=== PATIENT | female | born 1990 | race Caucasian/White ===

== ENCOUNTER 2016-09-10 11:52 | Inpatient (IN) | payer BC ==
[~2016-09-10] VITALS: Ht 167.6 cm; Wt 92.7 kg
[2016-11-19] VITALS (16 sets, daily range): BP systolic 83–135; BP diastolic 46–77; PULSE 60–88; TEMP 97–97.7
[2016-11-19 17:55] LABS: BASO % 0.2 % (0.0-2.0); EOS # 0.2 (0.0-0.7); EOS % 1.8 % (0-4.0); GRAN # 9.3 (1.4-6.5); GRAN % 74.7 % (42.2-75.2); HEMOGLOBIN 13.1 g/dl (12.5-16.0); LYMPH # 1.6 (1.2-3.4); LYMPH % 12.9 % (20.0-51.0); MEAN CELL VOLUME 92 fl (80.0-100.0); MEAN CORPUSCULAR HEMOGLOBIN 33 pg (27.0-31.0); MEAN CORPUSCULAR HGB CONC 36 g/dl (33.0-37.0); MEAN PLATELET VOLUME 12.1 fl (7.4-10.4); MONO # 1.2 (0.1-0.6); MONO % 9.9 % (1.7-9.3); PLATELET COUNT 181 K/mm3 (130-400); RED BLOOD COUNT 3.97 M/mm3 (4.10-5.30); REDCELL DISTRIBUTION WIDTH-CV 11.9 % (11.5-14.5); WHITE BLOOD COUNT 12.5 K/mm3 (4.8-10.8)
[2016-11-19 18:04] LABS: HEMATOCRIT 36.6 % (37.0-47.0)
[2016-11-20 04:00] VITALS: BP 124/58; PULSE 76; TEMP 98.3
[2016-11-20 10:31] VITALS: BP 119/68; PULSE 89; TEMP 98.1
[2016-11-20] MEDS ORDERED: PERCOCET 325 MG1 TA2 PO (14:36)
[2016-11-20] MEDS ORDERED: IBU800 M1 PO (14:36)
[2016-11-20 16:16] VITALS: BP 121/76; PULSE 59; TEMP 97.7
[2016-11-20 19:50] VITALS: BP 117/60; PULSE 62; TEMP 97.7
== END 2016-11-20 23:45 | disposition home or self-care (01) | DRG 775 ==
LOC: EDSTATUS 11-16 07:31 → LDRO 11-16 11:52 → LDR 11-19 07:36 → OB 11-19 17:16 → LDR 11-19 17:16 → OB 11-19 23:25
PROVIDERS: Student in an Organized Health Care Education/Training Program
PROC: 10E0XZZ Delivery of Products of Conception, External Approach (ICD-10-PCS; principal; 2016-11-19)
DX: O48.0 Post-term pregnancy (principal); O36.63X0 Maternal care for excessive fetal growth, third trimester, not applicable or unspecified; O76 Abnormality in fetal heart rate and rhythm complicating labor and delivery; O66.0 Obstructed labor due to shoulder dystocia; O69.81X0 Labor and delivery complicated by cord around neck, without compression, not applicable or unspecified; Z3A.40 40 weeks gestation of pregnancy; Z37.0 Single live birth
CPT/HCPCS: J2590; J2795; J7120

== ENCOUNTER 2021-03-14 22:19 | Emergency (ER) | payer MEDICAID ==
[~2021-03-14] VITALS: Ht 167.6 cm; Wt 90.9 kg
[~2021-03-14 22:19] MED LIST: IBU800 M1 PO; PERCOCET 325 MG1 TA2 PO
[2021-03-14 23:21] LABS: COLLECTION METHOD CLEAN CATCH
[2021-03-14 23:25] LABS: HEMOGLOBIN 11.8 g/dl (12.5-16.0); MEAN CELL VOLUME 92 fl (80.0-100.0); MEAN CORPUSCULAR HEMOGLOBIN 32 pg (27-31); MEAN CORPUSCULAR HGB CONC 35 g/dl (33.0-37.0); MEAN PLATELET VOLUME 11.4 fl (7.4-10.4); PLATELET COUNT 123 K/mm3 (130-400); RED BLOOD COUNT 3.64 M/mm3 (4.10-5.30); REDCELL DISTRIBUTION WIDTH-CV 11.9 % (11.5-14.5)
[2021-03-14 23:29] LABS: HEMATOCRIT 33.6 % (37.0-47.0)
[2021-03-14 23:36] LABS: ALBUMIN 2.2 gm/dL (3.5-5.0); CALCIUM 7.9 mg/dL (8.4-10.2); CREATININE, serum 0.63 mg/dL (0.57-1.11); TOTAL PROTEIN 5.5 gm/dL (6.2-8.1)
[2021-03-14 23:37] LABS: MUCOUS Present (NOT PRESENT); PH 6 (5-8); URINE APPEARANCE Hazy (CLEAR/HAZY); URINE BACTERIA None Seen /hpf (NONE SEEN); URINE BILIRUBIN Negative (NEGATIVE); URINE BLOOD 2+ (NEGATIVE); URINE COLOR Yellow (YELLOW); URINE GLUCOSE Negative (NEGATIVE); URINE KETONE Trace (NEGATIVE); URINE LEUKOCYTE ESTERASE 3+ (NEGATIVE); URINE NITRATE Negative (NEGATIVE); URINE PROTEIN(semi-quant) 1+ (NEGATIVE); URINE UROBILINOGEN Negative (NEGATIVE)
[2021-03-14 23:38] LABS: POTASSIUM 2.9 mmol/L (3.5-4.5)
[2021-03-15 00:03] LABS: BAND 13 % (0-10); EOSINOPHIL 1 % (0-4); LYMPHOCYTE 3 % (20.0-51.0); NEUTROPHILS 77 % (42.0-75.2)
[2021-03-15 01:00] VITALS: BP 142/70; PULSE 118; TEMP 101.8
== END 2021-03-15 01:00 | disposition short-term general hospital (02) ==
LOC: COL.ER 22:19
PROVIDERS: Student in an Organized Health Care Education/Training Program
DX: O86.4 Pyrexia of unknown origin following delivery (principal); R10.2 Pelvic and perineal pain
CPT/HCPCS: J0295; J1170; J1580; J2405; J3480